=== PATIENT | male | born 1960 | race Two or more races ===

== ENCOUNTER 2018-09-22 13:15 | Outpatient (CLI) | payer OTHER | END 2018-09-22 13:22 | disposition home or self-care (01) | LOC: MRI 13:15 | DX: M25.561 Pain in right knee (principal); M25.562 Pain in left knee; M54.5 Low back pain | CPT/HCPCS: 73718 ==

== ENCOUNTER 2018-10-21 12:20 | Outpatient (CLI) | payer OTHER | END 2018-10-21 15:07 | disposition home or self-care (01) | LOC: RAD 12:20 | DX: R07.89 Other chest pain (principal) ==

== ENCOUNTER 2018-11-14 09:02 | Day surgery (SDC) | payer OTHER ==
[~2018-11-14 09:02] MED LIST: AMILODIPINE PO; CELEXA10 MG PO; CHILDREN'S ASPI81 MG PO; GLUMETZA500 MG PO; LIPITOR20 MG PO; NORVASC2.5 M1 PO
== END 2018-11-14 20:05 | disposition home or self-care (01) ==
LOC: CIR.AMB 09:02 → ADM 11-21 14:45
DX: E65 Localized adiposity (principal)